=== PATIENT | male | born 1990 | race Two or more races ===

== ENCOUNTER 2021-11-01 21:12 | Emergency (ER) | payer BC, OTHER ==
[~2021-11-01] VITALS: Ht 175.3 cm; Wt 131.5 kg
[2021-11-01] MEDS ORDERED: LIDOCAINE 1% HCL (LOCAL ANESTH.) INJ 20ML MDV ID ONE (22:15)
[2021-11-01 22:49] VITALS: BP 138/90
[2021-11-01] MEDS ORDERED: CEPH500T PO (23:10)
[2021-11-01] MEDS ORDERED: IBUP800T27 PO (23:10)
== END 2021-11-02 00:59 | disposition home or self-care (01) ==
LOC: ER 21:12
DX: S00.01XA Abrasion of scalp, initial encounter (principal); L02.811 Cutaneous abscess of head [any part, except face]; X58.XXXA Exposure to other specified factors, initial encounter; Y93.89 Activity, other specified; Y92.89 Other specified places as the place of occurrence of the external cause; Y99.8 Other external cause status
CPT/HCPCS: 10060; 99283; J2001